=== PATIENT | female | born 1950 | race Caucasian/White ===

== ENCOUNTER 2020-07-31 09:11 | Emergency (ER) | payer MEDICARE, OTHER ==
[~2020-07-31] VITALS: Ht 154 cm; Wt 83.9 kg
[2020-07-31 10:01] LABS: BASOPHILS % (AUTO) 1 % (0-10); EOSINOPHILS # (AUTO) 0.2 10^3/uL (0.0-0.3); EOSINOPHILS % (AUTO) 3 % (0-10); HEMATOCRIT 24 % (35-52); LYMPHOCYTES # (AUTO) 1.5 10^3/uL (1.0-4.0); LYMPHOCYTES % (AUTO) 29 % (12-44); MEAN CORPUSCULAR HEMOGLOBIN 22 pg (25-34); MEAN CORPUSCULAR HGB CONC 28 g/dL (32-36); MEAN CORPUSCULAR VOLUME 78 fL (80-99); MEAN PLATELET VOLUME 10.4 fL (9.0-12.2); MONOCYTES # (AUTO) 0.4 10^3/uL (0.0-1.0); MONOCYTES % (AUTO) 7 % (0-12); NEUTROPHILS # (AUTO) 3.1 10^3/uL (1.8-7.8); NEUTROPHILS % (AUTO) 60 % (42-75); PLATELET COUNT 281 10^3/uL (130-400); WHITE BLOOD COUNT 5.2 10^3/uL (4.3-11.0)
[2020-07-31 10:06] LABS: HEMOGLOBIN 6.9 g/dL (11.5-16.0)
--- NOTE | 2020-07-31 10:07 | ED General ---
General Chief Complaint: General Problems/Pain Stated Complaint: POSSIBLE GI BLEED, ANEMIA Nursing Triage Note: WENT TO DR [facility] IN [place] FOR GENERAL BLOOD WORK FOR NOT FEELING WELL. HMG FOUND TO BE 6.9. WAS SENT HERE FOR OUT PT BLOOD ET ORDERS NOT OBTAINED. PT STATES THEY HAVE NOT STARTED TO INVESTIGATE WHY HER HMG WOULD BE LOW. Nursing Sepsis Screen: No Definite Risk (TRINO RODRIGUEZ MED STUDENT) History of Present Illness Date Seen by Provider: Jul 31, 2020 Time Seen by Provider: 09:50 Initial Comments This 70 y/o F presents to the Emergency Department for a chief complaint of shortness of air. This started several weeks ago and the patient became busy with the holidays but it has worsened. Her doctor obtained some blood work which revealed a hemoglobin of 6.9. The patient's only symptom is shortness of breath, worse with exertion. She denies nausea, vomiting, fever, or pain. She denies coughing up blood or blood in urine or stool. She has never had a colonoscopy and denies previous occurrences of anemia. She denies any heart or lung conditions. (TRINO RODRIGUEZ STUDENT) Allergies and Home Medications Allergies Coded Allergies: No Known Drug Allergies (Unverified , 07/31/20) Home Medications Ferrous Sulfate 325 Mg Tablet, 325 MG PO BID Prescribed by: IVAN LIRA on 07/31/20 1244 Patient Home Medication List Home Medication List Reviewed: Yes (IVAN GUZMÁN MD) Review of Systems Review of Systems Constitutional: No fever, No weakness EENTM: No hearing loss, No blurred vision Respiratory: No cough; short of breath Cardiovascular: No chest pain Gastrointestinal: No hematemesis, No nausea, No vomiting Psychiatric/Neurological: Denies Headache Hematologic/Lymphatic: Anemia (TRINO RODRIGUEZ STUDENT) Past Hmnfoun-Czkrpn-Qpxqae Hx Patient Social History Alcohol Use: Denies Use Recreational Drug Use: No Smoking Status: Never a Smoker Recent Foreign Travel: No Contact w/Someone Who Travel: No Recent Infectious Disease Expo: No Recent Hopitalizations: No (TRINO RODRIGUEZ MED STUDENT) Past Medical History Surgeries: Yes Orthopedic, Tonsillectomy Respiratory: No Cardiac: No Neurological: No Genitourinary: No Gastrointestinal: No Musculoskeletal: No Endocrine: No HEENT: No Cancer: No Psychosocial: No Integumentary: No (TRINO RODRIGUEZ BPT STUDENT) Physical Exam Vital Signs Vital Signs - First Documented 07/31/20 09:25 Temp 35.4 Pulse 76 Resp 16 B/P (MAP) 120/67 (84) Pulse Ox 98 O2 Delivery Room Air (IVAN GUZMÁN MD) Vital Signs Capillary Refill : Less Than 3 Seconds (TRINO RODRIGUEZ HeyKiki STUDENT) Height, Weight, BMI Height: '" Weight: lbs. oz. kg; 35.00 BMI Method: General Appearance: No Apparent Distress, WD/WN Respiratory: Lungs Clear, Normal Breath Sounds, No Accessory Muscle Use, No Respiratory Distress Cardiovascular: Regular Rate, Rhythm, No Edema Neurologic/Psychiatric: Alert, Oriented x3 Skin: Normal Color, Warm/Dry (TRINO RODRIGUEZ [employer] STUDENT) Progress/Results/Core Measures Suspected Sepsis Recent Fever Within 48 Hours: No Infection Criteria Present: None New/Unexplained Altered Menta: No Sepsis Screen: No Definite Risk SIRS Temperature: Pulse: 76 Respiratory Rate: 16 Laboratory Tests 07/31/20 09:49: White Blood Count 5.2 Blood Pressure 120 /67 Mean: 84 Laboratory Tests 07/31/20 09:49: Creatinine 0.69, INR Comment 1.0, Platelet Count 281, Total Bilirubin 0.6 (TRINO RODRIGUEZ BPT STUDENT) Results/Orders Lab Results Laboratory Tests Test 07/31/20 09:49 07/31/20 11:56 Range/Units White Blood Count 5.2 4.3-11.0 10^3/uL Red Blood Count 3.14 L 3.80-5.11 10^6/uL Hemoglobin 6.9 *L 11.5-16.0 g/dL Hematocrit 24 L 35-52 % Mean Corpuscular Volume 78 L 80-99 fL Mean Corpuscular Hemoglobin 22 L 25-34 pg Mean Corpuscular Hemoglobin Concent 28 L 32-36 g/dL Red Cell Distribution Width 15.7 H 10.0-14.5 % Platelet Count 281 130-400 10^3/uL Mean Platelet Volume 10.4 9.0-12.2 fL Immature Granulocyte % (Auto) 0 % Neutrophils (%) (Auto) 60 42-75 % Lymphocytes (%) (Auto) 29 12-44 % Monocytes (%) (Auto) 7 0-12 % Eosinophils (%) (Auto) 3 0-10 % Basophils (%) (Auto) 1 0-10 % Neutrophils # (Auto) 3.1 1.8-7.8 10^3/uL Lymphocytes # (Auto) 1.5 1.0-4.0 10^3/uL Monocytes # (Auto) 0.4 0.0-1.0 10^3/uL Eosinophils # (Auto) 0.2 0.0-0.3 10^3/uL Basophils # (Auto) 0.0 0.0-0.1 10^3/uL Immature Granulocyte # (Auto) 0.0 0.0-0.1 10^3/uL Prothrombin Time 14.0 12.2-14.7 SEC INR Comment 1.0 0.8-1.4 Activated Partial Thromboplast Time 32 24-35 SEC Sodium Level 141 135-145 MMOL/L Potassium Level 3.5 L 3.6-5.0 MMOL/L Chloride Level 109 H 98-107 MMOL/L Carbon Dioxide Level 23 21-32 MMOL/L Anion Gap 9 5-14 MMOL/L Blood Urea Nitrogen 11 7-18 MG/DL Creatinine 0.69 0.60-1.30 MG/DL Estimat Glomerular Filtration Rate > 60 BUN/Creatinine Ratio 16 Glucose Level 98 70-105 MG/DL Calcium Level 8.5 8.5-10.1 MG/DL Corrected Calcium 8.6 8.5-10.1 MG/DL Iron Level 15 L 33-167 ug/dL Total Iron Binding Capacity 438 H 237-330 ug/dL Unsaturated Iron Binding Capacity 423 25-500 ug/dL Transferrin % Saturation 3 L 17-57 % Ferritin 3.3 L 20.0-177.0 ng/mL Total Bilirubin 0.6 0.1-1.0 MG/DL Aspartate Amino Transf (AST/SGOT) 14 5-34 U/L Alanine Aminotransferase (ALT/SGPT) 15 0-55 U/L Alkaline Phosphatase 116 40-136 U/L Total Protein 6.7 6.4-8.2 GM/DL Albumin 3.9 3.2-4.5 GM/DL Urine Color YELLOW Urine Clarity CLEAR Urine pH 6.0 5-9 Urine Specific [place] 1.020 1.016-1.022 Urine Protein NEGATIVE NEGATIVE Urine Glucose (UA) NEGATIVE NEGATIVE Urine Ketones NEGATIVE NEGATIVE Urine Nitrite NEGATIVE NEGATIVE Urine Bilirubin NEGATIVE NEGATIVE Urine Urobilinogen 0.2 < = 1.0 MG/DL Urine Leukocyte Esterase 1+ H NEGATIVE Urine RBC (Auto) NEGATIVE NEGATIVE Urine RBC RARE /HPF Urine WBC 0-2 /HPF Urine Squamous Epithelial Cells 0-2 /HPF Urine Crystals NONE /LPF Urine Bacteria TRACE /HPF Urine Casts NONE /LPF Urine Mucus NEGATIVE /LPF Urine Culture Indicated NO (IVAN GUZMÁN MD) My Orders Orders - IVAN GUZMÁN MD Cbc With Automated Diff (07/31/20 09:16) Comprehensive Metabolic Panel (07/31/20 09:16) Protime With Inr (07/31/20 09:16) Partial Thromboplastin Time (07/31/20 09:16) Ed Iv/Invasive Line Start (07/31/20 09:16) Fecal Occult Bedside (07/31/20 10:09) Iron Tibc %Sat & Ferritin (07/31/20 10:09) Red Cells Leukocytes Reduced (07/31/20 10:09) Type And Screen (07/31/20 10:09) Ns Iv 500 Ml (Sodium Chloride 0.9%) (07/31/20 12:15) Ua Culture If Indicated (07/31/20 16:41) (IVAN GUZMÁN MD) Medications Given in ED Current Medications Medications Dose Ordered Sig/Tomy Route Start Time Stop Time Status Last Admin Dose Admin Sodium Chloride 500 ml @ 0 mls/hr Q0M ONCE IV 07/31/20 12:15 07/31/20 12:16 DC 07/31/20 12:21 500 MLS/HR (IVAN GUZMÁN MD) Vital Signs/I&O 07/31/20 07/31/20 07/31/20 07/31/20 09:25 12:42 12:53 13:36 Temp 35.4 36.8 36.5 Pulse 76 76 72 75 Resp 16 18 18 18 B/P (MAP) 120/67 (84) 130/65 134/65 135/68 Pulse Ox 98 99 99 95 O2 Delivery Room Air Room Air Room Air 07/31/20 14:30 Pulse 73 Resp 18 B/P (MAP) 141/66 Pulse Ox 98 O2 Delivery Room Air (IVAN GUZMÁN MD) Vital Signs/I&O Capillary Refill : Less Than 3 Seconds (TRINO RODRIGUEZ STUDENT) Blood Pressure Mean: 84 Progress Note : Time: 10:10 Progress Note - IV line has been established. Blood has been drawn. CBC and iron studies have been ordered, results pending. 1 unit of blood has been ordered to be given. A digital rectal exam for occult blood will be preformed. 12:00 - Hemoglobin came back 6.9 which is stable from the previous lab taken by her doctor. Iron studies are still pending results. The fecal occult blood test was negative. 1 unit of blood will be administered shortly. The patient seems stable and can be released once she's received the blood transfusion. She should follow up with a surgeon and get a colonoscopy as soon as possible. (TRINO RODRIGUEZ) Progress Note : Progress Note Fecal occult test was negative and urine showed no significant hematuria. Hemoglobin is stable from her reported 6.9 two days ago. She received transfusion of 1 unit of packed red blood cells. Iron studies were obtained. Patient was strongly advised to follow-up promptly with her primary care provider and seek referral with a surgeon for endoscopy. (IVAN GUZMÁN MD) Departure Impression Primary Impression: Microcytic anemia Disposition: 01 HOME, SELF-CARE Condition: Improved Departure-Patient Inst. Decision time for Depature: 12:41 (IVAN GUZMÁN MD) Referrals: DENZEL CANELA MD (PCP/Family) Primary Care Physician Patient Instructions: Anemia, Possibly From Low Iron, Adult Add. Discharge Instructions: Take a multivitamin and the iron supplement as prescribed. Follow-up with your primary care provider as soon as possible. You should seek referral to a physician coding specialist or general surgeon for endoscopy. Some local surgeons have been listed below for your convenience. Return to the emergency room if you have worsening symptoms. Call with questions or concerns All discharge instructions reviewed with patient and/or family. Voiced understanding. Scripts Ferrous Sulfate (Feosol) 325 Mg Tablet 325 MG PO BID, #60 TAB Prov: IVAN GUZMÁN MD 07/31/20 TRINO RODRIGUEZ STUDENT Jul 31, 2020 10:07 IVAN GUZMÁN MD Jul 31, 2020 12:44
[2020-07-31 10:13] LABS: ALBUMIN 3.9 GM/DL (3.2-4.5); CHLORIDE 109 MMOL/L (98-107); POTASSIUM 3.5 MMOL/L (3.6-5.0); SODIUM 141 MMOL/L (135-145)
[2020-07-31 10:14] LABS: CALCIUM 8.5 MG/DL (8.5-10.1)
[2020-07-31 10:15] LABS: GLUCOSE 98 MG/DL (70-105); TOTAL PROTEIN 6.7 GM/DL (6.4-8.2)
[2020-07-31 10:17] LABS: BILIRUBIN,TOTAL 0.6 MG/DL (0.1-1.0); CARBON DIOXIDE 23 MMOL/L (21-32)
[2020-07-31 10:19] LABS: ALKALINE PHOSPHATASE 116 U/L (40-136); CREATININE SERUM 0.69 MG/DL (0.60-1.30); GFR ESTIMATED > 60
[2020-07-31 10:20] LABS: BUN/CREATININE RATIO 16
[2020-07-31 10:22] LABS: ALANINE AMINOTRANSFERASE 15 U/L (0-55)
[2020-07-31] MEDS ORDERED: NS IV 500 ML 500 ML IV ONE (12:15)
[2020-07-31 12:42] VITALS: BP 130/65
[2020-07-31] MEDS ORDERED: FERR-65 PO (12:44)
[2020-07-31 12:53] VITALS: BP 134/65
--- NOTE | 2020-07-31 12:58 | NUR ---
BLOOD CON'T TO INFUSE WITHOUT PROBLEM
--- NOTE | 2020-07-31 13:24 | NUR ---
TO ROOM BLOOD CON'T TO INFUSE NO PROBLEMS
[2020-07-31 13:36] VITALS: BP 135/68
[2020-07-31 14:30] VITALS: BP 141/66
[2020-07-31 16:45] LABS: BILIRUBIN,URINE NEGATIVE (NEGATIVE); CLARITY,URINE CLEAR; COLOR,URINE YELLOW; GLUCOSE, URINE (UA) NEGATIVE (NEGATIVE); KETONES,URINE NEGATIVE (NEGATIVE); LEUKOCYTE ESTERASE ,URINE 1+ (NEGATIVE); NITRITE,URINE NEGATIVE (NEGATIVE); PROTEIN,URINE NEGATIVE (NEGATIVE)
[2020-07-31 17:03] LABS: BACTERIA,URINE TRACE /HPF; RBC,URINE RARE /HPF; SQUAMOUS EPITHELIAL CELL,UR 0-2 /HPF; WBC,URINE 0-2 /HPF
== END 2020-07-31 14:30 | disposition home or self-care (01) ==
LOC: ER 09:14
DX: D50.9 Iron deficiency anemia, unspecified (principal)
CPT/HCPCS: 36430; 80053; 81000; 82274; 82728; 83540; 85025; 85610; 85730; 86850; 86900; 86901; 86920; 99285; P9016; 36415

== ENCOUNTER 2022-11-30 06:33 | Outpatient (CLI) | payer MEDICARE, OTHER ==
[~2022-11-30] VITALS: Ht 157.5 cm; Wt 77.3 kg
[~2022-11-30 06:33] MED LIST: FERR-65 PO
[2022-12-04] MEDS ORDERED: MULT-1054 PO (12:32)
[2022-12-04] MEDS ORDERED: LORA10CA PO (12:32)
[2022-12-04] MEDS ORDERED: CRAN1CAP5 PO (12:32)
== END 2022-12-04 12:50 ==
LOC: PREOP 06:33
PROVIDERS: ATTEND Specialist
DX: Z01.818 Encounter for other preprocedural examination (principal)

== ENCOUNTER 2022-12-08 08:54 | Day surgery (SDC) | payer MEDICARE, OTHER ==
[~2022-12-08] VITALS: Ht 157.5 cm; Wt 77.3 kg
[~2022-12-08 08:54] MED LIST changes: +CRAN1CAP5 PO; +LORA10CA PO; +MULT-1054 PO
[2022-12-08] MEDS ORDERED: MIDAZOLAM 2 MG/2 ML (VERSED) VIAL ONE (09:09)
[2022-12-08] MEDS: TETRACAINE 0.5% OPHTH SOLN 4 ML BTL (SINGLE DOSE ONLY) OU PRN ×4 (09:11→09:29)
--- NOTE | 2022-12-08 09:14 | Ophthalmologist Pre-Op Note ---
Pre-Operative Progress Note H&P Reviewed The H&P was reviewed, patient examined and no changes noted. Date H&P Reviewed: December 08, 2022 Time H&P Reviewed: 09:14 Pre-Op Dx Cataract, Right Eye LORRI LAW MD December 08, 2022 09:14
[2022-12-08] MEDS ORDERED: TIMOLOL 0.5% (CATARACTS) 0.3 ML BTL OU PRN (09:15)
[2022-12-08] MEDS ORDERED: POVIDONE (BETADINE) OPHTH SOLN 5% 30 ML OP ONE (09:15)
[2022-12-08] MEDS ORDERED: MOXIFLOXACIN OPHTH SOLN 5 MG/ML 0.3 ML SYRINGE OP ONE (09:15)
[2022-12-08] MEDS: PHENYLEPHRINE 10% OPHTH (NEO-SYN) 5 ML BTL OU SCH ×3 (09:17→09:29)
[2022-12-08] MEDS: TROPICAMIDE 1% OPH SOLN (MYDRIACYL) 15 ML BTL OP SCH ×3 (09:17→09:29)
[2022-12-08 09:19] VITALS: BP 114/56
--- NOTE | 2022-12-08 10:28 | Ophthalmology Operative Report ---
Cataract removal/placement IOL PREOPERATIVE DIAGNOSIS: Cataract Right Eye POSTOPERATIVE DIAGNOSIS: Cataract Right Eye PROCEDURE: Cataract removal and placement of posterior chamber implant, right eye SURGEON: Jaime Law ANESTHESIA: Topical with sedation COMPLICATIONS: None ESTIMATED BLOOD LOSS: Minimal DESCRIPTION OF PROCEDURE: After proper informed consent was obtained, the patient, a 72 female, was taken to the Operating Room and the right eye was anesthetized with tetracaine. The right eye was then prepped and draped in the usual manner. A wire lid speculum was placed. A paracentesis was made at the left hand position. Preservative free lidocaine was injected into the anterior chamber followed by viscoelastic. A clear corneal incision was made in the temporal position. A capsulorrhexis was preformed and the central nuclear and cortical material were removed. The posterior capsule was polished and Abdullahi 20.5 [id number] IOL was placed into the capsular bag. The residual viscoelastic was aspirated and balanced saline solution was injected into the anterior chamber. Moxifloxacin was injected into the anterior chamber. The wound was checked and found to be water tight. The patient tolerated the procedure well without complications. JAIME LAW MD December 08, 2022 10:28
[2022-12-08 10:35] VITALS: BP 113/62
[2022-12-08] MEDS ORDERED: acetaZOLAMIDE ER 500 MG CAP (DIAMOX SEQUELS) PO ONE (11:30)
--- NOTE | 2022-12-08 12:25 | Anesthesia-General Post-Op ---
MAC Patient Condition Mental Status/LOC: Same as Preop Cardiovascular: Satisfactory Nausea/Vomiting: Absent Respiratory: Satisfactory Pain: Controlled Complications: Absent Post Op Complications Complications None Follow Up Care/Instructions Patient Instructions None needed. Anesthesiology Discharge Order Discharge Order Patient is doing well, no complaints, stable vital signs, no apparent adverse anesthesia problems. No complications reported per nursing. LIZ CHAKRABORTY CRNA December 08, 2022 12:25
== END 2022-12-08 10:39 | disposition home or self-care (01) ==
LOC: SDC 08:54
PROVIDERS: ATTEND Specialist
DX: H25.9 Unspecified age-related cataract (principal)
CPT/HCPCS: 66984; V2632